=== PATIENT | male | born 1980 | race Caucasian/White ===

== ENCOUNTER 2024-05-31 16:42 | Emergency (ER) | payer OTHER, SELFPAY ==
[2024-05-31 16:48] VITALS: BP 129/85; PULSE 75; TEMP 36.6; O2SAT 96; BMI 24.4
--- NOTE | 2024-05-31 17:06 | XR_ITS ---
The [address] [address] Patient Name: JERAD PACHECO MRN: [id number] date: 1980 Sex: M Assigned Patient Location: ER Current Patient Location: ED.MAIN Accession/Order Number: [id number] Exam Date: 05/31/2024 17:12 Report Date: 05/31/2024 17:26 At the request of: KIARRA MUSTAFA Procedure: XR ribs LT min 3V w CXR1V Exam: Radiographs: XR ribs LT min 3V w CXR1V Reason for exam: Trauma Comparison: None XR/XR ribs LT min 3V w CXR1V IMPRESSION: No radiographically evident left rib fractures. Pulmonary venous hypertension. Old right clavicle fracture. Remainder of the chest and left rib radiographs is unremarkable. Electronically authenticated by: SHARA GREEN Date: 05/31/2024 17:26
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
== END 2024-05-31 17:56 | disposition home or self-care (01) ==
PROVIDERS: Emergency Provider Emergency Medicine Emergency Medical Services
DX: S20.212A Contusion of left front wall of thorax, initial encounter (principal); V19.3XXA Pedal cyclist (driver) (passenger) injured in unspecified nontraffic accident, initial encounter
CPT/HCPCS: 71101; 99283